=== PATIENT | female | born 1980 | race Caucasian/White ===

== ENCOUNTER 2017-10-11 21:16 | Emergency (ER) | payer MEDICARE, MEDICAID ==
[~2017-10-11] VITALS: Ht 172.7 cm; Wt 95.5 kg
[~2017-10-11 21:16] MED LIST: CLON-528 PO; HYDR-565 PO; LEVO112T61 PO; MECL-111 PO
[2017-10-11 21:44] LABS: BASOPHILS % (AUTO) 0.3 % (0-1); EOSINOPHILS # (AUTO) 0.1 X10'3 (0-0.9); EOSINOPHILS % (AUTO) 0.8 % (0-6); HEMATOCRIT 42.6 % (35.0-45.0); HEMOGLOBIN 14.8 g/dl (12.0-16.0); LYMPHOCYTES # (AUTO) 1.9 X10'3 (1.1-4.8); LYMPHOCYTES % (AUTO) 17.5 % (21-51); MEAN CORPUSCULAR HEMOGLOBIN 31.3 PG (27.0-31.0); MEAN CORPUSCULAR HGB CONC 34.8 % (33.0-36.5); MEAN PLATELET VOLUME 8.5 FL (7.4-10.4); MONOCYTES # (AUTO) 0.4 X10'3 (0-0.9); MONOCYTES % (AUTO) 3.4 % (2-12); NEUTROPHILS # (AUTO) 8.3 X10'3 (1.8-7.7); PLATELET COUNT 228 X10'3 (140-440); RED BLOOD COUNT 4.73 X10'6 (4.20-5.60); RED CELL DISTRIBUTION WIDTH 13.2 % (11.5-14.5); WHITE BLOOD COUNT 10.6 X10'3 (4.5-11.0)
[2017-10-11 22:01] LABS: ALANINE AMINOTRANSFERASE 22 U/L (12-78); ALBUMIN 3.9 G/DL (3.4-5.0); ALBUMIN/GLOBULIN RATIO 1.1 (1.1-1.5); ALKALINE PHOSPHATASE 59 IU/L (46-116); ANION GAP 12 (8-16); ASPARTATE AMINO TRANSFERASE 13 U/L (10-37); BILIRUBIN,TOTAL 0.5 MG/DL (0.1-1.0); BLOOD UREA NITROGEN 18 MG/DL (7-18); CALCIUM 8.9 MG/DL (8.5-10.1); CHLORIDE 105 MMOL/L (99-107); CREATININE 0.82 MG/DL (0.40-0.90); GLUCOSE 108 MG/DL (70-104); LIPASE 163 U/L (73-393); POTASSIUM 3.9 MMOL/L (3.5-5.1); SODIUM 140 MMOL/L (135-145); TOTAL CARBON DIOXIDE 22.8 MMOL/L (24-32); TOTAL PROTEIN 7.4 G/DL (6.4-8.2); eGFR 78 ML/MIN
[2017-10-11] MEDS ORDERED: DIAZ10TA PO (22:24)
[2017-10-11] MEDS ORDERED: normal saline 1000ml 1,000 ML IV ONE (22:55)
[2017-10-11] MEDS ORDERED: MORPHINE 2MG in 2ml NS syringe IV PRN (22:55)
[2017-10-11] MEDS ORDERED: normal saline 1000ML IV soln IVB ONE (22:55)
[2017-10-11] MEDS ORDERED: ondansetron/PF 4mg/2ml inj IV ONE ×2 (22:55)
[2017-10-11 22:57] LABS: URINE HCG NEGATIVE (NEG)
[2017-10-11 22:59] LABS: CLARITY,URINE SLIGHTLY CLOUDY (Clear); COLOR,URINE YELLOW (Yellow); GLUCOSE, URINE NEGATIVE (Neg); KETONES,URINE NEGATIVE (Neg); LEUKOCYTE ESTERASE ,URINE NEGATIVE (Neg); NITRITES, URINE NEGATIVE (Neg); OCCULT BLOOD,URINE MODERATE (Neg); PH,URINE 5.5 (4.8-8.0); PROTEIN,URINE NEGATIVE (Neg); UROBILINOGEN,URINE 0.2 E.U/dL (0.2-1.0)
[2017-10-11 23:13] LABS: UA COLLECTION TYPE CLN CATCH MIDSTREAM
[2017-10-11 23:15] LABS: BACTERIA,URINE 1+ /HPF (Neg); MUCUS STRANDS MANY /LPF (Neg); RBC,URINE 0-2 /HPF (0-2); SQUAMOUS EPITHELIAL CELL,UR MANY /LPF (FEW); WBC,URINE 0-4 /HPF (0-4)
[2017-10-12] MEDS ORDERED: ONDA4TAB9 SL
[2017-10-12] MEDS ORDERED: OMEP20CA10 PO
[2017-10-12] MEDS ORDERED: SUCR1ORA2 PO
[2017-10-12] MEDS ORDERED: FAMO20TA44 PO
[2017-10-12 00:46] VITALS: BP 105/68
== END 2017-10-12 00:32 | disposition home or self-care (01) ==
LOC: ER 21:17
DX: R10.84 Generalized abdominal pain (principal); K21.9 Gastro-esophageal reflux disease without esophagitis; F15.10 Other stimulant abuse, uncomplicated; K57.30 Diverticulosis of large intestine without perforation or abscess without bleeding; G89.29 Other chronic pain; Z90.49 Acquired absence of other specified parts of digestive tract; Z90.710 Acquired absence of both cervix and uterus; Z98.51 Tubal ligation status
CPT/HCPCS: 36415; 74176; 80053; 81001; 81025; 83690; 85025; 96361; 96374; 96375; 99285; J2274; J2405

== ENCOUNTER 2017-11-13 20:48 | Emergency (ER) | payer MEDICARE, MEDICAID ==
[~2017-11-13] VITALS: Ht 172.7 cm; Wt 99.0 kg
[~2017-11-13 20:48] MED LIST changes: -CLON-528 PO; +DIAZ10TA PO; +FAMO20TA44 PO; -HYDR-565 PO; -MECL-111 PO; +OMEP20CA10 PO; +SUCR1ORA2 PO
[2017-11-13] MEDS ORDERED: HYDROcodone/acetaminophen 10/325mg tab PO ONE (22:40)
[2017-11-13] MEDS ORDERED: diazepam 5mg tablet PO ONE (22:40)
[2017-11-13] MEDS ORDERED: ketorolac tromethamine 15mg/ml inj. IM ONE (22:40)
[2017-11-13] MEDS ORDERED: CYCL-1 PO (23:22)
[2017-11-13 23:37] VITALS: BP 129/77
== END 2017-11-13 23:34 | disposition home or self-care (01) ==
LOC: ER 20:49
DX: M54.5 Low back pain (principal); M19.90 Unspecified osteoarthritis, unspecified site; G89.29 Other chronic pain; F15.90 Other stimulant use, unspecified, uncomplicated; Z86.14 Personal history of Methicillin resistant Staphylococcus aureus infection; Z90.49 Acquired absence of other specified parts of digestive tract; Z90.710 Acquired absence of both cervix and uterus; Z86.19 Personal history of other infectious and parasitic diseases; Z79.899 Other long term (current) drug therapy
CPT/HCPCS: 96372; 99283; J1885

== ENCOUNTER 2018-04-21 11:27 | Emergency (ER) | payer MEDICARE, MEDICAID ==
[~2018-04-21] VITALS: Ht 170.2 cm; Wt 97.7 kg
[~2018-04-21 11:27] MED LIST changes: +CYCL-1 PO
[2018-04-21 12:15] LABS: BASOPHILS # (AUTO) 0.1 X10'3 (0-0.2); BASOPHILS % (AUTO) 1.1 % (0-1); EOSINOPHILS # (AUTO) 0.2 X10'3 (0-0.9); EOSINOPHILS % (AUTO) 3.5 % (0-6); HEMATOCRIT 37.9 % (35.0-45.0); HEMOGLOBIN 12.7 g/dl (12.0-16.0); LYMPHOCYTES # (AUTO) 2.4 X10'3 (1.1-4.8); LYMPHOCYTES % (AUTO) 33.6 % (21-51); MEAN CORPUSCULAR HGB CONC 33.6 % (33.0-36.5); MEAN CORPUSCULAR VOLUME 92.3 FL (78-98); MEAN PLATELET VOLUME 8.5 FL (7.4-10.4); MONOCYTES # (AUTO) 0.7 X10'3 (0-0.9); MONOCYTES % (AUTO) 9.9 % (2-12); NEUTROPHILS # (AUTO) 3.7 X10'3 (1.8-7.7); NEUTROPHILS % (AUTO) 51.9 % (42-75); PLATELET COUNT 221 X10'3 (140-440); RED CELL DISTRIBUTION WIDTH 13.2 % (11.5-14.5); WHITE BLOOD COUNT 7.1 X10'3 (4.5-11.0)
[2018-04-21 12:29] LABS: PARTIAL THROMBOPLASTIN TIME 27 SECONDS (22-32); PROTHROMBIN TIME 9.8 SECONDS (9.0-12.0)
[2018-04-21 12:32] LABS: ALANINE AMINOTRANSFERASE 24 U/L (12-78); ALBUMIN 3.2 G/DL (3.4-5.0); ALKALINE PHOSPHATASE 62 IU/L (46-116); ANION GAP 9 (8-16); ASPARTATE AMINO TRANSFERASE 16 U/L (10-37); BILIRUBIN,TOTAL 0.2 MG/DL (0.1-1.0); BLOOD UREA NITROGEN 12 MG/DL (7-18); BUN/CREATININE RATIO 15.8 (6.6-38.0); CALCIUM 8.2 MG/DL (8.5-10.1); CHLORIDE 107 MMOL/L (99-107); CREATININE 0.76 MG/DL (0.40-0.90); GLUCOSE 95 MG/DL (70-104); SODIUM 139 MMOL/L (135-145); TOTAL CARBON DIOXIDE 23.2 MMOL/L (24-32); TOTAL PROTEIN 6.3 G/DL (6.4-8.2); eGFR 85 ML/MIN
[2018-04-21 13:05] VITALS: BP 103/66
== END 2018-04-21 13:08 | disposition home or self-care (01) ==
LOC: ER 11:27
DX: E86.0 Dehydration (principal); B34.9 Viral infection, unspecified; R10.13 Epigastric pain; R10.10 Upper abdominal pain, unspecified; R10.84 Generalized abdominal pain; K21.9 Gastro-esophageal reflux disease without esophagitis; E03.9 Hypothyroidism, unspecified; M19.90 Unspecified osteoarthritis, unspecified site; G89.29 Other chronic pain; F17.200 Nicotine dependence, unspecified, uncomplicated; F15.90 Other stimulant use, unspecified, uncomplicated; Z90.49 Acquired absence of other specified parts of digestive tract; Z90.710 Acquired absence of both cervix and uterus; Z98.51 Tubal ligation status; Z79.899 Other long term (current) drug therapy
CPT/HCPCS: 36415; 71045; 80053; 84443; 84484; 85025; 85610; 85730; 93005; 99284

== ENCOUNTER 2018-10-11 02:32 | Emergency (ER) | payer MEDICARE, MEDICAID ==
[~2018-10-11] VITALS: Ht 170.2 cm; Wt 96.0 kg
[2018-10-11] MEDS ORDERED: ondansetron 4mg rapidly disintigrating tab PO ONE (02:55)
[2018-10-11] MEDS ORDERED: HYDROcodone/acetaminophen 5mg/325mg tablet PO ONE (02:55)
[2018-10-11] MEDS ORDERED: ketorolac trometh inj. 60 MG/2 ML VIAL IM ONE (02:55)
[2018-10-11] MEDS ORDERED: ACET-812 PO (03:42)
[2018-10-11] MEDS ORDERED: IBUP-1986 PO (03:42)
[2018-10-11 04:09] VITALS: BP 133/84
== END 2018-10-11 04:12 | disposition home or self-care (01) ==
LOC: ER 02:33
DX: S80.211A Abrasion, right knee, initial encounter (principal); M79.18 Myalgia, other site; K21.9 Gastro-esophageal reflux disease without esophagitis; E03.9 Hypothyroidism, unspecified; M19.90 Unspecified osteoarthritis, unspecified site; G89.29 Other chronic pain; F15.90 Other stimulant use, unspecified, uncomplicated; Z86.14 Personal history of Methicillin resistant Staphylococcus aureus infection; Z86.19 Personal history of other infectious and parasitic diseases; Z90.49 Acquired absence of other specified parts of digestive tract; Z90.710 Acquired absence of both cervix and uterus; Z98.51 Tubal ligation status; Z98.890 Other specified postprocedural states; Z79.899 Other long term (current) drug therapy; W01.0XXA Fall on same level from slipping, tripping and stumbling without subsequent striking against object, initial encounter; Y93.89 Activity, other specified; Y92.89 Other specified places as the place of occurrence of the external cause; Y99.8 Other external cause status
CPT/HCPCS: 73502; 73610; 96372; 99283; J1885

== ENCOUNTER 2018-10-27 18:41 | Emergency (ER) | payer MEDICARE, MEDICAID ==
[~2018-10-27] VITALS: Ht 170.2 cm; Wt 95.9 kg
[~2018-10-27 18:41] MED LIST changes: +ACET-812 PO; +IBUP-1986 PO
[2018-10-27 19:50] LABS: BASOPHILS # (AUTO) 0.1 X10'3 (0-0.2); BASOPHILS % (AUTO) 0.6 % (0-1); EOSINOPHILS % (AUTO) 0.1 % (0-6); HEMATOCRIT 43.4 % (35.0-45.0); LYMPHOCYTES # (AUTO) 1.3 X10'3 (1.1-4.8); LYMPHOCYTES % (AUTO) 9.9 % (21-51); MEAN CORPUSCULAR HEMOGLOBIN 31.8 PG (27.0-31.0); MEAN CORPUSCULAR HGB CONC 34.6 g/dL (33.0-36.5); MEAN CORPUSCULAR VOLUME 91.8 FL (78-98); MEAN PLATELET VOLUME 8.6 FL (7.4-10.4); MONOCYTES # (AUTO) 0.9 X10'3 (0-0.9); MONOCYTES % (AUTO) 6.7 % (2-12); NEUTROPHILS # (AUTO) 10.7 X10'3 (1.8-7.7); NEUTROPHILS % (AUTO) 82.7 % (42-75); PLATELET COUNT 259 X10'3 (140-440); RED BLOOD COUNT 4.72 X10'6 (4.20-5.60); RED CELL DISTRIBUTION WIDTH 12.9 % (11.5-14.5)
[2018-10-27 20:00] LABS: ALANINE AMINOTRANSFERASE 21 U/L (12-78); ALBUMIN/GLOBULIN RATIO 1.1 (1.1-1.5); ALKALINE PHOSPHATASE 68 IU/L (46-116); ANION GAP 14 (8-16); ASPARTATE AMINO TRANSFERASE 13 U/L (10-37); BILIRUBIN,TOTAL 0.6 MG/DL (0.1-1.0); BLOOD UREA NITROGEN 17 MG/DL (7-18); BUN/CREATININE RATIO 14.8 (6.6-38.0); CALCIUM 8.9 MG/DL (8.5-10.1); CHLORIDE 103 MMOL/L (99-107); CREATININE 1.15 MG/DL (0.40-0.90); GLUCOSE 170 MG/DL (70-104); LIPASE 134 U/L (73-393); POTASSIUM 3.5 MMOL/L (3.5-5.1); SODIUM 138 MMOL/L (135-145); TOTAL CARBON DIOXIDE 21.1 MMOL/L (24-32); TOTAL PROTEIN 7.8 G/DL (6.4-8.2); eGFR 52 ML/MIN
[2018-10-27] MEDS ORDERED: normal saline 1000ML IV soln IVB ONE (21:10)
[2018-10-27] MEDS ORDERED: diphenhydrAMINE 50 mg/ml inj IV ONE (21:10)
[2018-10-27] MEDS ORDERED: glycopyrrolate 0.2mg/ml inj IV ONE (21:10)
[2018-10-27] MEDS ORDERED: metoclopramide 5 mg/ml inj IV ONE (21:10)
[2018-10-27 21:19] LABS: UA COLLECTION TYPE CLN CATCH MIDSTREAM
[2018-10-27 21:20] LABS: CLARITY,URINE CLOUDY (Clear); COLOR,URINE YELLOW (Yellow); GLUCOSE, URINE NEGATIVE (Neg); KETONES,URINE TRACE mg/dl (Neg); LEUKOCYTE ESTERASE ,URINE NEGATIVE (Neg); NITRITES, URINE NEGATIVE (Neg); OCCULT BLOOD,URINE MODERATE (Neg); PROTEIN,URINE 30 mg/dl (Neg); UROBILINOGEN,URINE 0.2 E.U/dL (0.2-1.0)
[2018-10-27 21:22] LABS: URINE HCG NEGATIVE (NEG)
[2018-10-27 21:27] LABS: WBC,URINE 0-4 /HPF (0-4)
[2018-10-27 21:30] LABS: BACTERIA,URINE 1+ /HPF (Neg); MUCUS STRANDS NONE SEEN /LPF (Neg); SQUAMOUS EPITHELIAL CELL,UR MANY /LPF (FEW)
--- NOTE | 2018-10-27 22:10 | NUR ---
IV FLUID BOLUS INFUSING
[2018-10-27] MEDS ORDERED: ONDA4TAB12 PO (22:51)
[2018-10-27] MEDS ORDERED: DICY10CA88 PO (22:51)
[2018-10-27] MEDS ORDERED: AMOX-580 PO (22:51)
[2018-10-27 23:38] VITALS: BP 101/54
== END 2018-10-27 23:40 | disposition home or self-care (01) ==
LOC: ER 18:41
DX: R10.31 Right lower quadrant pain (principal); K21.9 Gastro-esophageal reflux disease without esophagitis; E03.9 Hypothyroidism, unspecified; M19.90 Unspecified osteoarthritis, unspecified site; G89.29 Other chronic pain; F15.90 Other stimulant use, unspecified, uncomplicated; F17.210 Nicotine dependence, cigarettes, uncomplicated; Z90.49 Acquired absence of other specified parts of digestive tract; Z98.890 Other specified postprocedural states; Z98.51 Tubal ligation status; Z90.710 Acquired absence of both cervix and uterus; Z79.899 Other long term (current) drug therapy
CPT/HCPCS: 36415; 74176; 80053; 81001; 81025; 83690; 84145; 85025; 85610; 96361; 96374; 96375; 99284; J1200; J2765; J7030; J3490

== ENCOUNTER 2019-06-20 15:24 | Emergency (ER) | payer MEDICARE, MEDICAID ==
[~2019-06-20 15:24] MED LIST changes: -OMEP20CA10 PO; +OMEP20CA15 PO; +ONDA4TAB12 PO
== END 2019-06-20 16:37 | disposition left against medical advice (07) ==
LOC: ER 15:25
DX: R22.30 Localized swelling, mass and lump, unspecified upper limb (principal); Z53.21 Procedure and treatment not carried out due to patient leaving prior to being seen by health care provider

== ENCOUNTER 2019-06-23 01:18 | Emergency (ER) | payer MEDICARE, MEDICAID ==
[~2019-06-23] VITALS: Ht 170.2 cm; Wt 90.9 kg
[2019-06-23 01:24] VITALS: BP 127/97
--- NOTE | 2019-06-23 02:10 | NUR ---
Patient left ER without saying anything to me. ER registration called when the patient approached them to leave. I went to the lobby to talk to her but she was already gone.
== END 2019-06-23 02:12 | disposition left against medical advice (07) ==
LOC: ER 01:19
DX: L02.412 Cutaneous abscess of left axilla (principal); Z53.21 Procedure and treatment not carried out due to patient leaving prior to being seen by health care provider

== ENCOUNTER 2019-06-25 17:12 | Emergency (ER) | payer MEDICARE, MEDICAID ==
[~2019-06-25] VITALS: Ht 172.7 cm; Wt 90.0 kg
[2019-06-25 17:19] VITALS: BP 112/88
[2019-06-25] MEDS ORDERED: TRAM50TA2 PO (17:34)
[2019-06-25] MEDS ORDERED: CLIN150C2 PO (17:34)
== END 2019-06-25 18:17 | disposition home or self-care (01) ==
LOC: ER 17:14
DX: L03.112 Cellulitis of left axilla (principal); K21.9 Gastro-esophageal reflux disease without esophagitis; E03.9 Hypothyroidism, unspecified; M19.90 Unspecified osteoarthritis, unspecified site; G89.29 Other chronic pain; F15.90 Other stimulant use, unspecified, uncomplicated; Z90.49 Acquired absence of other specified parts of digestive tract; Z90.710 Acquired absence of both cervix and uterus; Z98.51 Tubal ligation status; Z86.14 Personal history of Methicillin resistant Staphylococcus aureus infection; Z79.899 Other long term (current) drug therapy
CPT/HCPCS: 99283

== ENCOUNTER 2019-08-01 12:44 | Emergency (ER) | payer MEDICARE, BC, MEDICAID ==
[~2019-08-01] VITALS: Ht 170.2 cm; Wt 95.5 kg
[2019-08-01 12:57] VITALS: BP 106/84
[2019-08-01] MEDS ORDERED: DOXY100C76 PO (13:33)
[2019-08-01] MEDS ORDERED: CEPH500C5 PO (13:49)
[2019-08-01] MEDS ORDERED: ondansetron 4mg rapidly disintigrating tab PO ONE (13:55)
[2019-08-01] MEDS ORDERED: ONDA4TAB6 PO (13:56)
== END 2019-08-01 14:11 | disposition home or self-care (01) ==
LOC: ER 12:45
DX: L02.01 Cutaneous abscess of face (principal); K21.9 Gastro-esophageal reflux disease without esophagitis; Z86.19 Personal history of other infectious and parasitic diseases; E03.9 Hypothyroidism, unspecified; M19.90 Unspecified osteoarthritis, unspecified site; F15.10 Other stimulant abuse, uncomplicated; F41.9 Anxiety disorder, unspecified; G89.29 Other chronic pain; Z86.14 Personal history of Methicillin resistant Staphylococcus aureus infection; Z85.9 Personal history of malignant neoplasm, unspecified; Z90.49 Acquired absence of other specified parts of digestive tract; Z90.710 Acquired absence of both cervix and uterus; Z98.51 Tubal ligation status; Z98.890 Other specified postprocedural states; Z79.899 Other long term (current) drug therapy
CPT/HCPCS: 99283

== ENCOUNTER 2021-02-01 11:32 | Emergency (ER) | payer BC, MEDICAID ==
[~2021-02-01] VITALS: Ht 170.2 cm; Wt 109.1 kg
[~2021-02-01 11:32] MED LIST changes: +ONDA4TAB6 PO
[2021-02-01 12:12] VITALS: BP 157/106
== END 2021-02-01 13:29 | disposition home or self-care (01) ==
LOC: ER 11:33
DX: R06.02 Shortness of breath (principal); Z20.822 Contact with and (suspected) exposure to COVID-19; K21.9 Gastro-esophageal reflux disease without esophagitis; E03.9 Hypothyroidism, unspecified; M19.90 Unspecified osteoarthritis, unspecified site; G89.29 Other chronic pain; F41.9 Anxiety disorder, unspecified; F15.90 Other stimulant use, unspecified, uncomplicated; F17.210 Nicotine dependence, cigarettes, uncomplicated; Z86.19 Personal history of other infectious and parasitic diseases; Z86.14 Personal history of Methicillin resistant Staphylococcus aureus infection; Z85.9 Personal history of malignant neoplasm, unspecified; Z90.49 Acquired absence of other specified parts of digestive tract; Z90.710 Acquired absence of both cervix and uterus; Z98.51 Tubal ligation status; Z98.890 Other specified postprocedural states; Z79.899 Other long term (current) drug therapy
CPT/HCPCS: 36415; 99283; U0003; U0005

== ENCOUNTER 2021-10-26 14:04 | Emergency (ER) | payer BC, MEDICAID ==
[~2021-10-26] VITALS: Ht 172.7 cm; Wt 113.0 kg
[2021-10-26 14:48] VITALS: BP 128/95
[2021-10-26 15:30] LABS: BASOPHILS # (AUTO) 0.1 X10'3 (0-0.2); BASOPHILS % (AUTO) 1.1 % (0-1); EOSINOPHILS # (AUTO) 0.2 X10'3 (0-0.9); EOSINOPHILS % (AUTO) 1.7 % (0-6); HEMATOCRIT 46.2 % (35.0-45.0); HEMOGLOBIN 15.7 g/dl (12.0-16.0); LYMPHOCYTES # (AUTO) 2.9 X10'3 (1.1-4.8); LYMPHOCYTES % (AUTO) 28.7 % (21-51); MEAN CORPUSCULAR HEMOGLOBIN 30.8 PG (27.0-31.0); MEAN CORPUSCULAR HGB CONC 33.9 g/dL (33.0-36.5); MEAN CORPUSCULAR VOLUME 90.9 FL (78-98); MEAN PLATELET VOLUME 8.3 FL (7.4-10.4); MONOCYTES # (AUTO) 0.6 X10'3 (0-0.9); MONOCYTES % (AUTO) 6.2 % (2-12); NEUTROPHILS # (AUTO) 6.2 X10'3 (1.8-7.7); NEUTROPHILS % (AUTO) 62.3 % (42-75); PLATELET COUNT 297 X10'3 (140-440); RED BLOOD COUNT 5.08 X10'6 (4.20-5.60); RED CELL DISTRIBUTION WIDTH 13.1 % (11.5-14.5)
[2021-10-26 15:50] LABS: ALANINE AMINOTRANSFERASE 22 U/L (12-78); ALBUMIN 4.3 G/DL (3.4-5.0); ALBUMIN/GLOBULIN RATIO 1.1 (1.1-1.5); ALKALINE PHOSPHATASE 89 IU/L (46-116); ANION GAP 11 (8-16); ASPARTATE AMINO TRANSFERASE 20 U/L (10-37); BILIRUBIN,TOTAL 0.5 MG/DL (0.1-1.0); BLOOD UREA NITROGEN 17 MG/DL (7-18); BUN/CREATININE RATIO 19.3 (6.6-38.0); CALCIUM 9.1 MG/DL (8.5-10.1); CHLORIDE 103 MMOL/L (99-107); CREATININE 0.88 MG/DL (0.40-0.90); GLUCOSE 101 MG/DL (70-104); SODIUM 139 MMOL/L (135-145); TOTAL CARBON DIOXIDE 24.6 MMOL/L (24-32); TOTAL PROTEIN 8.1 G/DL (6.4-8.2); eGFR 70 ML/MIN
--- NOTE | 2021-10-26 20:31 | NUR ---
PT NOT IN LOBBY
== END 2021-10-26 21:27 | disposition left against medical advice (07) ==
LOC: ER 14:04
DX: I10 Essential (primary) hypertension (principal); Z53.21 Procedure and treatment not carried out due to patient leaving prior to being seen by health care provider
CPT/HCPCS: 36415; 80053; 83880; 84484; 85025; 93005

== ENCOUNTER 2022-08-28 02:49 | Emergency (ER) | payer BC, MEDICAID ==
[~2022-08-28] VITALS: Ht 170.2 cm; Wt 118.0 kg
[2022-08-28] MEDS ORDERED: acetaminophen 325mg tablet PO ONE (03:25)
[2022-08-28] MEDS ORDERED: budesonide 0.5mg/2ml UD nebule IH ONE (03:25)
[2022-08-28] MEDS ORDERED: ipratropium/albuterol 3ml nebule NEB ONE (03:25)
--- NOTE | 2022-08-28 03:45 | NUR ---
RT with patient
[2022-08-28] MEDS ORDERED: ondansetron 4mg rapidly disintigrating tab PO ONE (04:20)
[2022-08-28] MEDS ORDERED: ONDA4TAB12 PO (04:24)
[2022-08-28] MEDS ORDERED: METO5TAB85 PO (04:24)
[2022-08-28] MEDS ORDERED: BUDE10.2 INH (04:24)
[2022-08-28 04:36] VITALS: BP 158/92
== END 2022-08-28 04:41 | disposition home or self-care (01) ==
LOC: ER 02:50
DX: R51.9 Headache, unspecified (principal); Z77.120 Contact with and (suspected) exposure to mold (toxic); K21.9 Gastro-esophageal reflux disease without esophagitis; G89.29 Other chronic pain; E03.9 Hypothyroidism, unspecified; F17.200 Nicotine dependence, unspecified, uncomplicated; F15.90 Other stimulant use, unspecified, uncomplicated; F41.9 Anxiety disorder, unspecified; Z86.14 Personal history of Methicillin resistant Staphylococcus aureus infection; Z90.49 Acquired absence of other specified parts of digestive tract; Z98.51 Tubal ligation status; Z98.890 Other specified postprocedural states; Z79.899 Other long term (current) drug therapy
CPT/HCPCS: 99283

== ENCOUNTER 2022-10-13 23:03 | Emergency (ER) | payer BC, MEDICAID ==
[~2022-10-13] VITALS: Ht 172.7 cm; Wt 113.6 kg
[~2022-10-13 23:03] MED LIST changes: +BUDE10.2 INH; +METO5TAB85 PO
[2022-10-13 23:06] VITALS: BP 154/98
[2022-10-13 23:42] LABS: BASOPHILS # (AUTO) 0.2 X10'3 (0-0.2); BASOPHILS % (AUTO) 1.3 % (0-1); EOSINOPHILS # (AUTO) 0.1 X10'3 (0-0.9); EOSINOPHILS % (AUTO) 0.5 % (0-6); HEMATOCRIT 44.2 % (35.0-45.0); LYMPHOCYTES # (AUTO) 2.3 X10'3 (1.1-4.8); LYMPHOCYTES % (AUTO) 16.6 % (21-51); MEAN CORPUSCULAR HEMOGLOBIN 30.7 PG (27.0-31.0); MEAN CORPUSCULAR HGB CONC 33.9 g/dL (33.0-36.5); MEAN CORPUSCULAR VOLUME 90.5 FL (78-98); MEAN PLATELET VOLUME 8.2 FL (7.4-10.4); MONOCYTES % (AUTO) 7.1 % (2-12); NEUTROPHILS # (AUTO) 10.3 X10'3 (1.8-7.7); NEUTROPHILS % (AUTO) 74.5 % (42-75); PLATELET COUNT 304 X10'3 (140-440); RED BLOOD COUNT 4.88 X10'6 (4.20-5.60); RED CELL DISTRIBUTION WIDTH 13.3 % (11.5-14.5); WHITE BLOOD COUNT 13.8 X10'3 (4.5-11.0)
[2022-10-13 23:55] LABS: LIPASE 70 U/L (73-393)
[2022-10-13 23:56] LABS: ALANINE AMINOTRANSFERASE 26 U/L (12-78); ALBUMIN 4.4 G/DL (3.4-5.0); ALBUMIN/GLOBULIN RATIO 1.2 (1.1-1.5); ALKALINE PHOSPHATASE 85 IU/L (46-116); ANION GAP 9 (8-16); ASPARTATE AMINO TRANSFERASE 19 U/L (10-37); BILIRUBIN,TOTAL 0.5 MG/DL (0.1-1.0); BLOOD UREA NITROGEN 13 MG/DL (7-18); BUN/CREATININE RATIO 14.6 (10.0-20.0); CALCIUM 9.1 MG/DL (8.5-10.1); CHLORIDE 102 MMOL/L (99-107); CREATININE 0.89 MG/DL (0.40-0.90); GLUCOSE 114 MG/DL (70-104); POTASSIUM 4.7 MMOL/L (3.5-5.1); SODIUM 137 MMOL/L (135-145); TOTAL CARBON DIOXIDE 26.3 MMOL/L (24-32); TOTAL PROTEIN 8.1 G/DL (6.4-8.2); eGFR 69 ML/MIN
[2022-10-14] MEDS ORDERED: LIDOcaine 1% W/epiNEPHrine 1:100,000 20ml vial IJ ONE (00:10)
== END 2022-10-14 00:43 | disposition left against medical advice (07) ==
LOC: ER 23:03
DX: K59.00 Constipation, unspecified (principal); K64.5 Perianal venous thrombosis; K21.9 Gastro-esophageal reflux disease without esophagitis; M19.90 Unspecified osteoarthritis, unspecified site; E03.9 Hypothyroidism, unspecified; F12.90 Cannabis use, unspecified, uncomplicated; Z90.49 Acquired absence of other specified parts of digestive tract; Z90.710 Acquired absence of both cervix and uterus
CPT/HCPCS: 74018; 80053; 83690; 85025; 99284; A6449

== ENCOUNTER 2023-07-13 22:10 | Emergency (ER) | payer BC, MEDICAID ==
[~2023-07-13] VITALS: Ht 172.7 cm; Wt 112.5 kg
[~2023-07-13 22:10] MED LIST changes: +DIAZ-546 PO; -DIAZ10TA PO
[2023-07-13] MEDS: ketorolac tromethamine 15mg/ml inj. IM ONE (23:26)
[2023-07-13] MEDS: cyclobenzaprine 10mg tablet PO ONE (23:26)
[2023-07-13] MEDS ORDERED: IBUP-1984 PO (23:52)
[2023-07-13] MEDS ORDERED: CYCL-1 PO (23:52)
[2023-07-14 00:04] VITALS: BP 151/94; PULSE 97; RESP 18; TEMP 98.2; O2SAT 97
== END 2023-07-14 00:07 | disposition home or self-care (01) ==
LOC: ER 22:11
DX: S70.02XA Contusion of left hip, initial encounter (principal); K21.9 Gastro-esophageal reflux disease without esophagitis; E03.9 Hypothyroidism, unspecified; M19.90 Unspecified osteoarthritis, unspecified site; F15.90 Other stimulant use, unspecified, uncomplicated; M54.50 Low back pain, unspecified; Z79.1 Long term (current) use of non-steroidal anti-inflammatories (NSAID); Z79.2 Long term (current) use of antibiotics; Z79.899 Other long term (current) drug therapy; Z90.49 Acquired absence of other specified parts of digestive tract; Z90.710 Acquired absence of both cervix and uterus; Z98.51 Tubal ligation status
CPT/HCPCS: 72100; 73502; 96372; 99284; J1885

== ENCOUNTER 2023-07-22 08:45 | Emergency (ER) | payer BC, MEDICAID ==
[~2023-07-22] VITALS: Ht 170.2 cm; Wt 118.2 kg
[2023-07-22 09:33] LABS: BASOPHILS # (AUTO) 0.1 X10'3 (0-0.2); BASOPHILS % (AUTO) 1.1 % (0-1); EOSINOPHILS # (AUTO) 0.2 X10'3 (0-0.9); EOSINOPHILS % (AUTO) 3.1 % (0-6); HEMATOCRIT 42.7 % (35.0-45.0); HEMOGLOBIN 14.5 g/dl (12.0-16.0); LYMPHOCYTES # (AUTO) 2.6 X10'3 (1.1-4.8); LYMPHOCYTES % (AUTO) 32.4 % (21-51); MEAN CORPUSCULAR HEMOGLOBIN 30.6 PG (27.0-31.0); MEAN CORPUSCULAR HGB CONC 33.9 g/dL (33.0-36.5); MEAN CORPUSCULAR VOLUME 90.5 FL (78-98); MEAN PLATELET VOLUME 8.1 FL (7.4-10.4); MONOCYTES # (AUTO) 0.6 X10'3 (0-0.9); MONOCYTES % (AUTO) 7.2 % (2-12); NEUTROPHILS # (AUTO) 4.5 X10'3 (1.8-7.7); NEUTROPHILS % (AUTO) 56.2 % (42-75); PLATELET COUNT 267 X10'3 (140-440); RED BLOOD COUNT 4.72 X10'6 (4.20-5.60); WHITE BLOOD COUNT 7.9 X10'3 (4.5-11.0)
[2023-07-22 09:52] LABS: ALBUMIN 3.6 G/DL (3.4-5.0); ANION GAP 9 (8-16); BLOOD UREA NITROGEN 14 MG/DL (7-18); BUN/CREATININE RATIO 18.2 (10.0-20.0); CALCIUM 8.6 MG/DL (8.5-10.1); CHLORIDE 103 MMOL/L (99-107); CREATININE 0.77 MG/DL (0.40-0.90); GLUCOSE 102 MG/DL (70-104); PRO BRAIN NATRIURETIC PEPTIDE 45 PG/ML (0-125); SODIUM 139 MMOL/L (135-145); TOTAL CARBON DIOXIDE 26.9 MMOL/L (24-32); eCRCL 90 ML/MIN; eGFR 81 ML/MIN
[2023-07-22 10:53] VITALS: BP 172/102; PULSE 93; O2SAT 100
[2023-07-22 11:10] VITALS: RESP 16
[2023-07-22 12:43] VITALS: TEMP 97.8
== END 2023-07-22 12:45 | disposition home or self-care (01) ==
LOC: ER 08:45
DX: R07.9 Chest pain, unspecified (principal); R06.02 Shortness of breath
CPT/HCPCS: 36415; 71045; 80048; 83880; 84484; 85025; 93005; 93306; 99285

== ENCOUNTER 2023-08-27 15:13 | Emergency (ER) | payer BC, MEDICAID ==
[~2023-08-27] VITALS: Ht 170.2 cm; Wt 113.6 kg
[2023-08-27 15:32] VITALS: BP 151/102; PULSE 110; RESP 18; TEMP 97.8; O2SAT 98
== END 2023-08-27 17:38 | disposition left against medical advice (07) ==
LOC: ER 15:14
DX: M79.643 Pain in unspecified hand (principal); Z53.21 Procedure and treatment not carried out due to patient leaving prior to being seen by health care provider
CPT/HCPCS: 99281

== ENCOUNTER 2023-10-15 23:13 | Emergency (ER) | payer BC, MEDICAID ==
[~2023-10-15] VITALS: Ht 170.2 cm; Wt 113.6 kg
[2023-10-15 23:28] VITALS: BP 139/89; PULSE 110; TEMP 97.8; O2SAT 100
[2023-10-15] MEDS ORDERED: HYDR-3965 PO (23:50)
[2023-10-16] MEDS: ondansetron 4mg rapidly disintigrating tab PO ONE (00:10)
[2023-10-16] MEDS: HYDROcodone/acetaminophen 10/325mg tab PO ONE (00:11)
[2023-10-16 00:12] VITALS: RESP 20
[2023-10-16] MEDS: ketorolac trometh. 30mg/ml inj. IM ONE (00:12)
== END 2023-10-16 00:19 | disposition home or self-care (01) ==
LOC: ER 23:16
DX: S82.61XA Displaced fracture of lateral malleolus of right fibula, initial encounter for closed fracture (principal); K21.9 Gastro-esophageal reflux disease without esophagitis; W22.8XXA Striking against or struck by other objects, initial encounter; Y93.89 Activity, other specified; Y92.89 Other specified places as the place of occurrence of the external cause; Y99.8 Other external cause status
CPT/HCPCS: 73610; 96372; 99283; J1885

== ENCOUNTER 2024-01-21 00:10 | Emergency (ER) | payer BC, MEDICAID ==
[~2024-01-21] VITALS: Ht 170.2 cm; Wt 115.9 kg
[~2024-01-21 00:10] MED LIST changes: +ONDA-243 PO; -ONDA4TAB12 PO
[2024-01-21 00:16] VITALS: TEMP 98.7
[2024-01-21 00:55] LABS: BASOPHILS # (AUTO) 0.1 X10'3 (0-0.2); BASOPHILS % (AUTO) 1.5 % (0-1); EOSINOPHILS # (AUTO) 0.2 X10'3 (0-0.9); EOSINOPHILS % (AUTO) 2.6 % (0-6); HEMATOCRIT 39.5 % (35.0-45.0); HEMOGLOBIN 13.3 g/dl (12.0-16.0); LYMPHOCYTES % (AUTO) 33.2 % (21-51); MEAN CORPUSCULAR HEMOGLOBIN 30.7 PG (27.0-31.0); MEAN CORPUSCULAR HGB CONC 33.8 g/dL (33.0-36.5); MEAN CORPUSCULAR VOLUME 91.1 FL (78-98); MEAN PLATELET VOLUME 7.9 FL (7.4-10.4); MONOCYTES # (AUTO) 0.7 X10'3 (0-0.9); MONOCYTES % (AUTO) 7.5 % (2-12); NEUTROPHILS # (AUTO) 4.9 X10'3 (1.8-7.7); NEUTROPHILS % (AUTO) 55.2 % (42-75); PLATELET COUNT 260 X10'3 (140-440); RED BLOOD COUNT 4.34 X10'6 (4.20-5.60); RED CELL DISTRIBUTION WIDTH 13.6 % (11.5-14.5); WHITE BLOOD COUNT 8.9 X10'3 (4.5-11.0)
[2024-01-21 01:00] LABS: ALANINE AMINOTRANSFERASE 26 U/L (12-78); ALBUMIN 3.9 G/DL (3.4-5.0); ALBUMIN/GLOBULIN RATIO 1.1 (1.1-1.5); ALKALINE PHOSPHATASE 68 IU/L (46-116); ANION GAP 11 (8-16); ASPARTATE AMINO TRANSFERASE 20 U/L (10-37); BILIRUBIN,TOTAL 0.3 MG/DL (0.1-1.0); BLOOD UREA NITROGEN 13 MG/DL (7-18); BUN/CREATININE RATIO 13.7 (10.0-20.0); CHLORIDE 105 MMOL/L (99-107); CREATININE 0.95 MG/DL (0.40-0.90); GLUCOSE 122 MG/DL (70-104); POTASSIUM 3.7 MMOL/L (3.5-5.1); SODIUM 141 MMOL/L (135-145); TOTAL CARBON DIOXIDE 25.4 MMOL/L (24-32); TOTAL PROTEIN 7.3 G/DL (6.4-8.2); eCRCL 73 ML/MIN; eGFR 64 ML/MIN
[2024-01-21 01:08] LABS: PRO BRAIN NATRIURETIC PEPTIDE 37 PG/ML (0-125)
[2024-01-21] MEDS: famotidine 20mg tablet PO ONE (01:19)
[2024-01-21] MEDS: LIDOcaine 2% Viscous 15ml cup MM ONE (01:20)
[2024-01-21] MEDS: mag hydrox/Alum hydrox/simeth 30ml oral suspension PO ONE ×2 (01:20)
[2024-01-21 03:20] VITALS: BP 127/98; PULSE 74; RESP 16; O2SAT 97
[2024-01-21] MEDS ORDERED: FAMO-129 PO (03:21)
== END 2024-01-21 03:43 | disposition home or self-care (01) ==
LOC: ER 00:13
DX: R07.9 Chest pain, unspecified (principal); K21.9 Gastro-esophageal reflux disease without esophagitis; E03.9 Hypothyroidism, unspecified; M19.90 Unspecified osteoarthritis, unspecified site; G89.29 Other chronic pain; M54.9 Dorsalgia, unspecified; F41.9 Anxiety disorder, unspecified; F15.90 Other stimulant use, unspecified, uncomplicated; Z85.89 Personal history of malignant neoplasm of other organs and systems; Z90.49 Acquired absence of other specified parts of digestive tract; Z90.710 Acquired absence of both cervix and uterus; Z98.51 Tubal ligation status; Z79.1 Long term (current) use of non-steroidal anti-inflammatories (NSAID); Z79.52 Long term (current) use of systemic steroids; Z79.899 Other long term (current) drug therapy
CPT/HCPCS: 36415; 71045; 80053; 83880; 84484; 85025; 93005; 99285

== ENCOUNTER 2024-10-20 05:30 | Emergency (ER) | payer BC, MEDICAID ==
[~2024-10-20] VITALS: Ht 172.7 cm; Wt 116.2 kg
[~2024-10-20 05:30] MED LIST changes: +FAMO-129 PO
[2024-10-20 05:41] VITALS: BP 129/65; PULSE 90; RESP 18; TEMP 97.7; O2SAT 100
== END 2024-10-20 07:22 | disposition left against medical advice (07) ==
LOC: ER 05:31
DX: M54.9 Dorsalgia, unspecified (principal); Z53.21 Procedure and treatment not carried out due to patient leaving prior to being seen by health care provider

== ENCOUNTER 2025-04-07 17:57 | Emergency (ER) | payer BC, MEDICAID ==
[~2025-04-07] VITALS: Ht 170.2 cm; Wt 121.0 kg
[~2025-04-07 17:57] MED LIST changes: -ACET-812 PO; -BUDE10.2 INH; -CYCL-1 PO; -DIAZ-546 PO; -FAMO-129 PO; -FAMO20TA44 PO; -IBUP-1986 PO; -METO5TAB85 PO; -OMEP20CA15 PO; -ONDA-243 PO; -ONDA4TAB6 PO; -SUCR1ORA2 PO
[2025-04-07] MEDS: ondansetron/PF 4mg/2ml inj IV ONE (18:42)
[2025-04-07] MEDS: morphine 4 MG/ML inj SYRINge IV ONE (18:42)
[2025-04-07] MEDS: normal saline 1000ml 1,000 ML IV ONE (18:45)
[2025-04-07 18:53] LABS: MEAN PLATELET VOLUME 8.4 FL (7.4-10.4); RED CELL DISTRIBUTION WIDTH 13.8 % (11.5-14.5)
--- NOTE | 2025-04-07 18:56 | Physician Documentation ---
History of Present Illness ~ Chief Complaint: Abdominal Pain Stated Complaint: ABDOMINAL PAIN Time Seen by MD: 18:36 Primary Medical Doctor: Brendan Fleming [facility] Patient presents to the emergency room for evaluation of left upper quadrant pain. She states it feels similar to when she previously had cholecystitis but more intense. Bowel movements reported to be normal. She did vomit two days ago but no nausea now. No dysuria. No chest pain. Medication Reconciliation Allergies: Coded Allergies: No Known Allergies (Unverified , 11/26/24) Scheduled Levothyroxine Sodium* (Synthroid*), 125 MCG PO DAILY, (Reported) Past Medical History Past Medical History: Congestive Heart Failure, Hypertension, Bronchitis, Constipation, GERD, Hemorrhoids, Hepatitis B, Hepatitis C, Liver Disease, Hypothyroidism, Arthritis, Chronic Back Pain, MRSA Abscess, *CANCER*, Anxiety Past Surgical History: cholecystectomy, hysterectomy, tubal ligation, other Other Past Surgical History: thyroidectomy Other Past Family History: Cardiac problems (father) Alcohol Use: None Drug Use: methamphetamine Lives with: Family Lives In: Home Occupation: employed Review of Systems ROS All review of systems negative except as per HPI Physical Exam Vital Signs: Temperature: 98.2, Source: Temporal, Heart Rate: 95, Respiratory Rate: 21, BP: 149/117, Pulse Oximetry: 100, Weight: 121.000 Oxygen Flow Rate: 0 Physical Exam General: Patient is awake, alert, oriented x4 in moderate distress. Head: Normocephalic and atraumatic. Eyes: Conjunctival normal. EOMI. PERRL. ENT: Mucous membranes moist. Neck: Supple, trachea is midline. Chest: Clear to auscultation bilaterally without rales, rhonchi, or wheezes. There is no accessory muscle use or retractions. Cardiac: RRR without murmurs, gallops, or rubs. Abd: Soft, nondistended, positive tenderness to palpation to left upper quadrant Progress Results/Orders Results/Orders Orders - RAMONE PASCUAL MD Drug Screen, Urine (04/07/25 18:37) Ct Abdomen Pelvis (04/07/25 18:37) Methylnaltrexone Br Inj (Relistor Inj (04/07/25 20:35) Bisacodyl Delayed-Release Tab (Dulcolax (04/07/25 20:35) Ketorolac Trometh 15mg/Ml Vial (Toradol (04/07/25 20:35) Completed Orders - RAMONE PASCUAL MD Morphine 4mg/Ml Inj. (Morphine Inj.) (04/07/25 18:40) Ondansetron Inj. (Zofran 4mg/2ml Vial) (04/07/25 18:40) Normal Saline 1000ml (0.9% Sodium Chlori (04/07/25 18:40) Hcg Serum Ql (04/07/25 18:37) Ct Abdomen Pelvis (04/07/25 18:37) Acetaminophen 1,000mg/100ml Iv (Ofirmev (04/07/25 19:15) Medications Received in ER Medications (Trade) Dose Ordered Sig/Roman Route PRN Reason Start Time Stop Time Status Last Admin Dose Admin (morphine inj.) 4 mg ONCE ONCE IV 04/07/25 18:40 04/07/25 18:41 DC 04/07/25 18:42 4 MG (Zofran 4mg/2ml vial) 4 mg ONCE ONCE IV 04/07/25 18:40 04/07/25 18:41 DC 04/07/25 18:42 4 MG Sodium Chloride 1,000 ml @ 1,000 mls/hr ONCE ONCE IV 04/07/25 18:40 04/07/25 19:39 DC 04/07/25 18:45 1,000 MLS/HR Acetaminophen 100 ml @ 400 mls/hr ONCE ONCE IV 04/07/25 19:15 04/07/25 19:29 DC 04/07/25 19:44 400 MLS/HR Vital Signs 04/07/25 04/07/25 04/07/25 04/07/25 18:09 18:42 18:49 18:55 Temp 98.2 Pulse 95 88 Resp 24 21 19 13 B/P (MAP) 149/117 150/100 (117) Pulse Ox 100 100 O2 Flow Rate 0 0 Laboratory Tests Test 04/07/25 18:17 04/07/25 18:47 White Blood Count 7.1 Red Blood Count 4.57 Hemoglobin 14.0 Hematocrit 41.1 Mean Corpuscular Volume 90.0 Mean Corpuscular Hemoglobin 30.5 Mean Corpuscular Hemoglobin Concent 33.9 Red Cell Distribution Width 13.8 Platelet Count 262 Mean Platelet Volume 8.4 Neutrophils (%) (Auto) 52.0 Lymphocytes (%) (Auto) 36.5 Monocytes (%) (Auto) 8.7 Eosinophils (%) (Auto) 1.9 Basophils (%) (Auto) 0.9 Neutrophils # (Auto) 3.7 Lymphocytes # (Auto) 2.6 Monocytes # (Auto) 0.6 Eosinophils # (Auto) 0.1 Basophils # (Auto) 0.1 CBC Comment Sodium Level 137 Potassium Level 4.1 Chloride Level 101 Carbon Dioxide Level 24.6 Anion Gap 11 Blood Urea Nitrogen 13 Creatinine 0.95 H Estimated GFR/1.73 m2 63 BUN/Creatinine Ratio 13.7 Glucose Level 95 Calcium Level 9.1 Total Bilirubin 0.4 Aspartate Amino Transf (AST/SGOT) 20 Alanine Aminotransferase (ALT/SGPT) 18 Alkaline Phosphatase 69 Total Protein 7.9 Albumin 4.3 Globulin 3.6 Albumin/Globulin Ratio 1.2 Lipase 43 Chemistry Comments Human Chorionic Gonadotropin, Qual Negative Medical Decision Making Additional information obtaine: old records Findings Patient presents to the emergency room with abdominal pain as per HPI. Differentials include but are not limited to small-bowel obstruction, constipation, gas, gastritis, intra-abdominal infection, aortic pathology therefore emergent labs and imaging indicated. Patient's pain greatly improved. Labs and imaging reassuring. Possible element of constipation we will treat her as such with ER precautions discussed. Given location of pain he had not feel patient is suffering from ovarian pathology. Diff Dx GI Bleed:Consideration: Include: AE fistula, Angiodysplasia, Bleeding diathesis, Blood loss anemia, Carcinoma, Diverticulosis, Diverticulitis, Esophageal varicies, Esophagitis, Gastritis, Gastroenteritis, Inflammatory BD, Geraldine-Clemons syndrome, Meckel's diverticulum, PUD, Other Diff Dx Pain:Considerations: Include: AAA, -Complete, - Incomplete, -Inevitable, -Missed, -Threatened, Abruptio placentae, Angina/MO, Aortic dissection, Appendicitis, Bowel obstruction, Cholangitis, Cholecystitis, Cholelithasis, Constipation, Diverticular disease, Dysmenorrhea, Ectopic , Esophageal rupture, Esophagitis, Gastritis/PUD, Gastroenteritis, GI hemorrhage, Hernia, Hepatitis, Inflammatory BD, Ischemic bowel, Mass, Ovarian cyst/torsion, Pancreatitis, PID, Porphyria, Trauma, intraabdominal, Urinary obstruction, Urinary tract infection, Urolithiasis, Other Diff Dx N/V/D:Considerations: Include: Appendicitis, Bowel obstruction, Dehydration, DKA, Diarrhea - bacterial, Diarrhea - parasitic, Diarrhea - viral, Diverticulitis, Diverticulosis, Drug toxicity, Electrolyte imbalance, Food poisoning, Gastroenteritis, GE reflux, GI bleed, Hepatitis, Hernia, Hypovolemia, Hypotension, Inflammatory BD, Impaction, Malnutrition, Pancreatitis, , PUD, Renal failure, Urolithiasis, Urinary obstruction, UTI, Other Diff Dx Rectal:Considerations: Include: Fissure, Fistula, Foreign body, Impaction, Perirectal abscess, Rectal prolapse, Subcutaneous abscess, Thrombosed hemorrhoid, Ulcer, UTI, Other Departure Disposition: 01 HOME / SELF CARE / HOMELESS Impression: Primary Impression: Abdominal pain Condition: Improved Discharge Instructions: Abdominal Pain (Nonspecific) Referrals: NO PRIMARY CARE PROVIDER (PCP) Signature Scribe Signature: No scribe Attestation: The note accurately reflects work and decisions made by me.Ramone Pascual MD 04/07/25 20:33 RAMONE PASCUAL MD Apr 07, 2025 18:56
[2025-04-07 19:10] LABS: CREATININE 0.95 MG/DL (0.40-0.90); TOTAL CARBON DIOXIDE 24.6 MMOL/L (24-32); eCRCL 72 ML/MIN; eGFR 63 ML/MIN
[2025-04-07 19:41] LABS: HCG SERUM QL NEGATIVE
[2025-04-07] MEDS: acetaminophen 1,000mg/100ml IV 100 ML IV ONE (19:44)
--- NOTE | 2025-04-07 19:54 | RADIOLOGY REPORT ---
Exam: CT CT ABDOMEN PELVIS History: abd pain COMPARISON: DI HIP UNILATERAL 2 VIEWS on DOS: 07/13/23 Technique: Multidetector spiral CT of the abdomen and pelvis was performed from lung bases to pubic symphysis. Axial, coronal and sagittal multiplanar reformats were performed by the technologist on a separate workstation. Radiation Dose : 1. Abdomen/Pelvis: CTDIvol 35.87 mGy, DLP 1830.91 mGy*cm. Findings: Lung Bases: No acute or significant lung base finding. Normal heart size. No pleural or pericardial effusion. Liver: The liver is normal in size. No focal lesions. Gallbladder and Biliary Tree: Gallbladder is surgically absent. Spleen: Unremarkable Pancreas: Unremarkable. Adrenal Glands: Unremarkable Kidneys: No hydronephrosis. Bladder: Unremarkable Bowel: The stomach is grossly normal in appearance. Small bowel and colon are normal in caliber and distribution. Normal appendix is visualized in the right lower quadrant without findings of appendicitis. Ascites: Absent Lymphadenopathy: No mesenteric, retroperitoneal or periportal lymphadenopathy. Abdominal Wall and Mesentery: Unremarkable. Vasculature: Unremarkable. Pelvic Organs: Unremarkable Musculoskeletal: No aggressive focal bony lesions, acute fractures or dislocation. IMPRESSION: No acute abdominal or pelvic finding. Radiation optimization: All CT scans at this facility use at least one of these dose optimization techniques: automated exposure control mA and/or kV adjustment per patient size (includes targeted exams where dose is matched to clinical indication) or iterative reconstruction.
[2025-04-07] MEDS: ketorolac trometh 15mg/ml vial 15 MG/ML ML IV ONE (21:08)
[2025-04-07] MEDS: bisacodyl 5mg tablet.DR PO ONE (21:09)
[2025-04-07] MEDS: methylnaltrexone br 12mg/0.6ml inj***SubQ only SQ ONE (21:10)
[2025-04-07 21:15] VITALS: BP 167/94; PULSE 88; RESP 19; TEMP 98.2; O2SAT 100
== END 2025-04-07 21:17 | disposition home or self-care (01) ==
LOC: ER 17:58
DX: R10.12 Left upper quadrant pain (principal); E03.9 Hypothyroidism, unspecified; G89.29 Other chronic pain; M19.90 Unspecified osteoarthritis, unspecified site; I11.0 Hypertensive heart disease with heart failure; I50.9 Heart failure, unspecified; F15.90 Other stimulant use, unspecified, uncomplicated; K21.9 Gastro-esophageal reflux disease without esophagitis; Z86.14 Personal history of Methicillin resistant Staphylococcus aureus infection; Z86.19 Personal history of other infectious and parasitic diseases; Z87.19 Personal history of other diseases of the digestive system; Z90.49 Acquired absence of other specified parts of digestive tract; Z90.710 Acquired absence of both cervix and uterus; Z79.899 Other long term (current) drug therapy
CPT/HCPCS: 36415; 74176; 80053; 83690; 84703; 85025; 96361; 96372; 96374; 96375; 99285; J0131; J1885; J2212; J2270; J2405; J7030